=== PATIENT | male | born 1955 | race African-American/Black ===

== ENCOUNTER 2017-05-29 05:10 | Day surgery (SDC) | payer OTHER ==
[2017-05-19 11:53] VITALS: BMI 30.5
[2017-05-29] MEDS ORDERED: HEPARIN NA (PORCINE) 5,000 UNITS/ML 1ML VIAL ONE ×2 (07:30→10:08)
[2017-05-29] MEDS ORDERED: LIDOCAINE HCL 1%, 10 MG/ML (20ML VIAL) ONE (07:31)
[2017-05-29] MEDS ORDERED: MIDAZOLAM HCL 2 MG/2 ML SINGLE DOSE VIAL ONE ×2 (09:41→09:53)
[2017-05-29] MEDS ORDERED: ceFAZolin SODIUM 1 GM VIAL IVPB ONE (09:50)
[2017-05-29] MEDS ORDERED: ceFAZolin SODIUM 1 GM VIAL ONE (09:51)
[2017-05-29] MEDS ORDERED: SODIUM CHLORIDE 0.9% P/F 10 ML VIAL IJ ONE (09:51)
[2017-05-29] MEDS ORDERED: PROPOFOL 20 ML ONE (09:52)
[2017-05-29] MEDS ORDERED: LIDOCAINE HCL 1%, 10 MG/ML (20ML VIAL) NR ONE (09:54)
[2017-05-29] MEDS ORDERED: PROMETHAZINE HCL 25 MG/1 ML VIAL IVPUSH PRN (11:03)
[2017-05-29] MEDS ORDERED: ONDANSETRON 4 MG/2 ML VIAL IVPUSH PRN (11:03)
--- NOTE | 2017-05-29 11:09 | OP ---
Operative Note - Note: Operative Date: 05/29/17 Pre-Operative Diagnosis: RLE claudication Operation: Aortogram, RLE angiogram, SFA, Popliteal artery DCB angioplasty, SFA, Popliteal artery stent placement. Post-Operative Diagnosis: Same as Pre-op Surgeon: Shar Hopkins Anesthesia: Fractional Estimated Blood Loss (mls): 50 Operative Report Dictated: Yes
--- NOTE | 2017-05-29 11:10 | HP ---
Admitting History and Physical - Admission Chief Complaint: RLE claudication - Past Medical History [employer]: Yes: Peripheral Neuropathy (secondary to DM ) Musculoskeletal: Yes: Chronic low back pain, Osteoarthritis Endocrine: Yes: Diabetes Mellitus - Smoking History Smoking history: Current every day smoker Have you smoked in the past 12 months: No Aproximately how many cigarettes per day: 4 - Alcohol/Substance Use Hx Alcohol Use: No Home Medications - Allergies Allergies/Adverse Reactions: Allergies Allergy/AdvReac Type Severity Reaction Status Date / Time No Known Allergies Allergy Verified 05/29/17 08:35 - Home Medications Home Medications: Ambulatory Orders Acetaminophen [Tylenol .Regular Strength -] 325 mg PO Q4H PRN #90 tablet Gabapentin [Neurontin -] 300 mg PO BID #60 capsule 10/28/14 Ramipril [Altace] 5 mg PO DAILY #0 capsule 10/28/14 Sennosides [Senna -] 1 tab PO BID #60 tablet 10/28/14 Tamsulosin HCl [Flomax -] 0.8 mg PO DAILY@0800 #0 cap.er.24h 10/28/14 Insulin (Levemir) [Levemir Flexpen -] 30 units SQ BID 11/23/14 Insulin Sliding Scale [Novolog Flexpen Sliding Scale -] See Protocol SQ BID 09/08 Loperamide 2 mg PO QID PRN 11/23/14 Aspirin [ASA -] 81 mg PO DAILY 05/19/17 Physical Examination Vital Signs: Vital Signs Temperature 98.0 F 05/29/17 08:30 Pulse Rate 90 05/29/17 08:30 Respiratory Rate 18 05/29/17 08:30 Blood Pressure 116/66 05/29/17 08:30 O2 Sat by Pulse Oximetry (%) 96 05/29/17 08:38 Constitutional: Yes: Well Nourished Eyes: Yes: WNL HENT: Yes: WNL Neck: Yes: WNL Cardiovascular: Yes: WNL Respiratory: Yes: WNL Gastrointestinal: Yes: WNL Musculoskeletal: Yes: WNL Extremities: Yes: WNL Edema: No Peripheral Pulses WNL: No Integumentary: Yes: WNL Neurological: Yes: WNL ...Motor Strength: WNL Psychiatric: Yes: WNL Assessment/Plan RLE claudication 1. For angiogram today
[2017-05-29] MEDS ORDERED: LACTATED RINGERS SOLUTION 1,000 ML IV SCH (11:15)
[2017-05-29] MEDS ORDERED: CLOPIDOGREL BISULFATE 75 MG TABLET (FP) PO ONE ×2 (11:23→12:30)
[2017-05-29 12:14] VITALS: TEMP 98
[2017-05-29 13:08] VITALS: BP 135/76; PULSE 78
--- NOTE | 2017-05-29 16:33 | OP ---
DATE OF OPERATION: 05/29/2017 PREOPERATIVE DIAGNOSIS: Right lower extremity claudication. POSTOPERATIVE DIAGNOSIS: Right lower extremity claudication. PROCEDURE: Aortogram, right lower extremity angiogram, superficial femoral artery and popliteal artery drug-coated balloon angioplasty with stent placement. SURGEON: Shar Guidry DO ANESTHESIA: Fractional. BLOOD LOSS: 50 mL INDICATION FOR PROCEDURE: The patient is a 62-year-old male who has right lower extremity claudication. Preoperative ultrasound showed that he has a SFA and popliteal artery occlusion. Patient came into ambulatory surgery after having medical and cardiac clearance. The patient was consented for the procedure, understanding all risks, benefits, and alternatives and was then taken to the operating room. DESCRIPTION OF PROCEDURE: Once in the operating room, was laid on the operating table in supine manner, and the area of the left and right groin were prepped and draped in sterile surgical manner. We then went ahead and injected 10 mL of 1% lidocaine over the left common femoral artery. We then went ahead and took our micropuncture needle and punctured the left common femoral artery. Micropuncture wire was inserted, and a traditional 5-Kinyarwanda sheath was inserted. We then placed a 0.035 floppy guidewire up into the aorta, followed by an Omni Flush catheter. We then shot an aortogram via hand injection, showing that the aorta and the iliac arteries were without any disease. We then placed a 0.035 floppy guidewire up and over to the right common femoral artery. An Omni Flush catheter followed. We then went ahead and shot an angiogram of the right lower extremity via hand injection, which showed that the common femoral artery, the profunda, and the proximal SFA were patent. The distal SFA and the popliteal artery were occluded. The popliteal artery came back in below-knee popliteal artery, then reconstituted, and the patient actually had 2-vessel runoff, PT and DP, into the foot. At this point, we placed a 0.035 stiff guidewire into the SFA, removed our Omni Flush catheter, and placed a 6 x 25 crossover sheath. Next, 5000 units of IV heparin were administered to the patient. We then brought our wire down to the occlusion, and using our Quick-cross catheter, we were able to perform subintimal dissection and get the wire down into the below-knee popliteal artery. Once we got into the below-knee popliteal artery, the wire was then placed into the anterior tibial artery, followed by the Quick-cross catheter. We then shot an angiogram of the right lower extremity, making sure we were in the true lumen, and we were as the anterior tibial artery lit up all the way into the foot. We then went ahead and placed our wire into the anterior tibial artery. We then went ahead and used a 5 x 10 balloon and performed angioplasty of the occluded segment of the SFA and popliteal artery. We then went ahead and used a 6 x 120 drug-coated Lutonix balloon and performed angioplasty of the SFA and popliteal artery, and we kept the balloon up for 2 minutes. We then went ahead and placed a 6 x 8 and a 6 x 100 LifeStent and covered the popliteal artery and the SFA segment that was occluded. We then ballooned that in place using a 5 x 10 balloon. Completion angiogram now showed that the SFA and popliteal artery were patent. There was good brisk flow down the anterior tibial artery which went all the way into the foot. Patient had a palpable DP pulse. At this point, we brought our sheath up and over and StarClose device was successfully deployed in the left common femoral artery. Area was wet and dried, and Dermabond was placed. The patient tolerated the procedure with no complications. Patient transferred to the PACU in stable condition. SHAR GUIDRY DO [id number]
== END 2017-05-29 13:15 | disposition home or self-care (01) ==
LOC: JASU-SURG 05:10
PROC: 047M3D1 Dilation of Right Popliteal Artery with Intraluminal Device, using Drug-Coated Balloon, Percutaneous Approach (ICD-10-PCS; 2017-05-29)
PROC: 047K3D1 Dilation of Right Femoral Artery with Intraluminal Device, using Drug-Coated Balloon, Percutaneous Approach (ICD-10-PCS; principal; 2017-05-29 09:00)
DX: I70.211 Atherosclerosis of native arteries of extremities with intermittent claudication, right leg (principal)
CPT/HCPCS: 37226; C1877; C2623; 76000-TC; 94760; J1644

== ENCOUNTER 2022-04-08 15:36 | Inpatient (IN) | payer OTHER ==
[2022-04-08] MEDS ORDERED: SODIUM CHLORIDE 1,000 ML IV SCH (16:00)
[2022-04-08 16:23] VITALS: BMI 21.7
[2022-04-08 17:05] LABS: BASO % 0.8 % (0-2.0); EOS % 1.8 % (0-4.5); HEMOGLOBIN 11.3 GM/dL (11.7-16.9); LYMPH % 33.6 % (8-40); MCH 31.5 pg (25.7-33.7); MCHC 34.3 g/dl (32.0-35.9); MEAN PLT VOLUME 7.6 fl (7.5-11.1); MONO % 7.6 % (3.8-10.2); NEUT % 56.2 % (42.8-82.8); PLATELET COUNT 213 10^3/uL (134-434); RBC 3.59 M/mm3 (4.00-5.60); RDW 14.1 % (11.9-15.9); WHITE BLOOD COUNT 8.8 K/mm3 (4.0-10.0)
[2022-04-08 17:21] LABS: ACTIVATED PTT 34.3 SECONDS (25.2-36.5); INR 0.97 (0.83-1.09); PROTHROMBIN TIME (PATIENT) 11.1 SEC (9.7-13.0)
[2022-04-08 17:25] LABS: CHLORIDE 110 mmol/L (98-107); SODIUM 142 mmol/L (136-145)
[2022-04-08 17:27] LABS: BLOOD UREA NITROGEN 47.8 mg/dL (7-18); CALCIUM 8.5 mg/dL (8.5-10.1)
[2022-04-08 17:28] LABS: ALBUMIN 3.4 g/dl (3.4-5.0); CO2 26 mmol/L (21-32); GLUCOSE,RANDOM 102 mg/dL (74-106)
[2022-04-08 17:31] LABS: CREATININE 3.7 mg/dL (0.55-1.3); SGOT/AST 9 U/L (15-37); SGPT/ALT 19 U/L (13-61)
[2022-04-08 17:32] LABS: BILIRUBIN,TOTAL 0.3 mg/dL (0.2-1); TOT PROT 6.9 g/dl (6.4-8.2)
[2022-04-08 17:34] LABS: ALK PHOS 52 U/L (45-117)
[2022-04-08 17:40] LABS: ANION GAP 5 MMOL/L (8-16)
[2022-04-08] MEDS ORDERED: CALCIUM GLUCONATE 10% - 1,000 MG/10 ML VIAL IVPUSH ONE (17:41)
[2022-04-08] MEDS ORDERED: INSULIN REGULAR HUMAN 100 UNITS/ML *VIAL IVPUSH ONE (17:41)
[2022-04-08] MEDS ORDERED: SODIUM BICARBONATE 8.4% 50 MEQ/50 ML VIAL IV ONE (17:43)
[2022-04-08] MEDS ORDERED: DEXTROSE 50%-WATER - 25 GM/50 ML VIAL IVPUSH ONE (17:43)
[2022-04-08] MEDS ORDERED: CALCIUM GLUCONATE 10% - 1,000 MG/10 ML VIAL ONE (17:54)
[2022-04-08] MEDS ORDERED: DEXTROSE 50%-WATER 25 GM/50 ML DISP.SYRIN ONE (17:54)
[2022-04-08] MEDS ORDERED: ALBUTEROL SO4 0.083% IH SOL 2.5 MG/3 ML VIAL.NEB. NEB ONE (17:54)
[2022-04-08] MEDS: ALBUTEROL SO4 0.083% IH SOL 2.5 MG/3 ML VIAL.NEB. NEB SCH ×4 (18:00→18:50)
[2022-04-08 18:12] LABS: CHOLESTEROL 140 mg/dL (50-200)
[2022-04-08 18:13] LABS: TRIGLYCERIDES 179 mg/dL (0-150)
[2022-04-08 18:14] LABS: LDL CHOLESTEROL (ONLY SJRH) 88 mg/dL (5-100)
[2022-04-08 18:15] LABS: HDL CHOLESTEROL 34 mg/dL (40-60)
[2022-04-08 18:20] LABS: EPI CELLS 13 /uL (0-25.1); HYALINE CASTS 3 /uL (0-3.1); URINE APPEARANCE CLEAR; URINE BACTERIA 9 /uL (0-1359); URINE BILIRUBIN NEGATIVE (NEGATIVE); URINE COLOR YELLOW; URINE GLUCOSE (UA) NEGATIVE (NEGATIVE); URINE KETONE NEGATIVE (NEGATIVE); URINE LEUK ESTERASE NEGATIVE (NEGATIVE); URINE NITRITE NEGATIVE (NEGATIVE); URINE PROTEIN 3+ (NEGATIVE); URINE RBC 9 /uL (0-23.9); URINE UROBILINOGEN 0.2 mg/dL (0.2-1.0); URINE WBC 9 /uL (0-25.8)
[2022-04-08] MEDS ORDERED: SODIUM ZIRCONIUM CYCLOSILICATE (LOKELMA) 5 GM PACKET PO ONE (20:00)
[2022-04-08] MEDS ORDERED: SODIUM ZIRCONIUM CYCLOSILICATE (LOKELMA) 5 GM PACKET ONE (20:12)
[2022-04-08] MEDS: HEPARIN NA (PORCINE) 5,000 UNITS/ML 1ML VIAL SQ SCH (22:30)
[2022-04-09] MEDS ORDERED: SODIUM CHLORIDE 1,000 ML IV SCH (00:15)
[2022-04-09] MEDS ORDERED: CALCIUM GLUCONATE 10% - 1,000 MG/10 ML VIAL IVPUSH ONE (06:02)
[2022-04-09 06:17] LABS: EPI CELLS 8 /uL (0-25.1); HYALINE CASTS 2 /uL (0-3.1); URINE APPEARANCE CLEAR; URINE BACTERIA 2 /uL (0-1359); URINE BILIRUBIN NEGATIVE (NEGATIVE); URINE COLOR YELLOW; URINE GLUCOSE (UA) NEGATIVE (NEGATIVE); URINE KETONE NEGATIVE (NEGATIVE); URINE LEUK ESTERASE NEGATIVE (NEGATIVE); URINE NITRITE NEGATIVE (NEGATIVE); URINE PROTEIN 3+ (NEGATIVE); URINE RBC 12 /uL (0-23.9); URINE UROBILINOGEN 0.2 mg/dL (0.2-1.0); URINE WBC 6 /uL (0-25.8)
[2022-04-09 06:20] LABS: URINE BARBITURATES NEGATIVE (NEGATIVE)
[2022-04-09 06:21] LABS: COCAINE, UR NEGATIVE (NEGATIVE); METHADONE, UR NEGATIVE (NEGATIVE); PHENCYCLIDINE,URINE NEGATIVE (NEGATIVE); URINE AMPHETAMINES NEGATIVE (NEGATIVE); URINE BENZODIAZEPINES NEGATIVE (NEGATIVE)
[2022-04-09 06:22] LABS: OPIATES, URI NEGATIVE (NEGATIVE)
[2022-04-09] MEDS ORDERED: CALCIUM GLUC IN NACL, ISO-OSM 1 GM/50 ML BAG IVPB ONE (06:23)
[2022-04-09 06:47] LABS: HEMATOCRIT 31.6 % (35.4-49); HEMOGLOBIN 10.9 GM/dL (11.7-16.9); MCH 31.7 pg (25.7-33.7); MCHC 34.6 g/dl (32.0-35.9); MEAN CELL VOLUME 91.7 fl (80-96); MEAN PLT VOLUME 8.2 fl (7.5-11.1); PLATELET COUNT 206 10^3/uL (134-434); RBC 3.44 M/mm3 (4.00-5.60); WHITE BLOOD COUNT 7.5 K/mm3 (4.0-10.0)
[2022-04-09] MEDS ORDERED: INSULIN SLIDING SCALE (NOVOLOG) 1 VIAL SQ SCH (07:00)
[2022-04-09] MEDS: INSULIN SLIDING SCALE (NOVOLOG) 1 VIAL SQ SCH ×5 (07:07→22:11)
[2022-04-09 07:08] LABS: CALCIUM 7.9 mg/dL (8.5-10.1)
[2022-04-09 07:09] LABS: ALBUMIN 3.1 g/dl (3.4-5.0); BLOOD UREA NITROGEN 48.7 mg/dL (7-18); MAGNESIUM 1.5 mg/dL (1.8-2.4)
[2022-04-09 07:12] LABS: CREATININE 3.8 mg/dL (0.55-1.3); PHOSPHOROUS 5.5 mg/dL (2.5-4.9)
[2022-04-09 07:13] LABS: TOT PROT 6.3 g/dl (6.4-8.2)
[2022-04-09 07:14] LABS: BILIRUBIN,TOTAL 0.3 mg/dL (0.2-1)
[2022-04-09] MEDS ORDERED: HEPARIN NA (PORCINE) 5,000 UNITS/ML 1ML VIAL ONE ×2 (07:18→15:21)
[2022-04-09] MEDS: HEPARIN NA (PORCINE) 5,000 UNITS/ML 1ML VIAL SQ SCH ×3 (07:24→22:03)
[2022-04-09] MEDS ORDERED: TAMSULOSIN HCL 0.4 MG CAP ONE (07:47)
[2022-04-09] MEDS: TAMSULOSIN HCL 0.4 MG CAP PO SCH (08:10)
[2022-04-09] MEDS ORDERED: amLODIPine BESYLATE 10 MG TABLET (FP) ONE (08:52)
[2022-04-09] MEDS ORDERED: CLOPIDOGREL BISULFATE 75 MG TABLET (FP) ONE (08:53)
[2022-04-09] MEDS: CLOPIDOGREL BISULFATE 75 MG TABLET (FP) PO SCH (10:11)
[2022-04-09] MEDS: amLODIPine BESYLATE 10 MG TABLET (FP) PO SCH (10:11)
[2022-04-09] MEDS: KETOCONAZOLE 2% CREAM - 60GM TUBE TP SCH (10:11)
[2022-04-09] MEDS ORDERED: MAGNESIUM 2GM/50ML STERILE WATER IVPB IVPB ONE (16:46)
[2022-04-09] MEDS ORDERED: MAGNESIUM OXIDE 400 MG TABLET (FP) PO ONE (18:08)
[2022-04-09] MEDS: ATORVASTATIN CA 10 MG TABLET (FP) PO SCH (22:04)
[2022-04-10] MEDS: HEPARIN NA (PORCINE) 5,000 UNITS/ML 1ML VIAL SQ SCH ×3 (06:21→21:57)
[2022-04-10] MEDS: INSULIN SLIDING SCALE (NOVOLOG) 1 VIAL SQ SCH ×4 (06:21→22:09)
[2022-04-10] MEDS: SODIUM CHLORIDE 0.45% 1,000 ML IV SCH ×2 (06:21→19:52)
[2022-04-10 08:28] LABS: BASO % 0.6 % (0-2.0); HEMATOCRIT 29.7 % (35.4-49); HEMOGLOBIN 10.1 GM/dL (11.7-16.9); LYMPH % 37.9 % (8-40); MCH 31.3 pg (25.7-33.7); MCHC 34.2 g/dl (32.0-35.9); MEAN CELL VOLUME 91.6 fl (80-96); MEAN PLT VOLUME 8.4 fl (7.5-11.1); MONO % 7.8 % (3.8-10.2); NEUT % 51.7 % (42.8-82.8); PLATELET COUNT 198 10^3/uL (134-434); RBC 3.24 M/mm3 (4.00-5.60); WHITE BLOOD COUNT 7.4 K/mm3 (4.0-10.0)
[2022-04-10 08:49] LABS: CALCIUM 7.7 mg/dL (8.5-10.1)
[2022-04-10 08:50] LABS: BLOOD UREA NITROGEN 46.8 mg/dL (7-18); MAGNESIUM 1.7 mg/dL (1.8-2.4)
[2022-04-10 08:53] LABS: CREATININE 3.6 mg/dL (0.55-1.3)
[2022-04-10 08:54] LABS: BILIRUBIN,TOTAL 0.6 mg/dL (0.2-1)
[2022-04-10] MEDS: TAMSULOSIN HCL 0.4 MG CAP PO SCH (09:00)
[2022-04-10] MEDS: CLOPIDOGREL BISULFATE 75 MG TABLET (FP) PO SCH (10:28)
[2022-04-10] MEDS: amLODIPine BESYLATE 10 MG TABLET (FP) PO SCH (10:28)
[2022-04-10] MEDS: KETOCONAZOLE 2% CREAM - 60GM TUBE TP SCH (10:32)
[2022-04-10] MEDS ORDERED: SODIUM ZIRCONIUM CYCLOSILICATE (LOKELMA) 5 GM PACKET PO SCH (11:45)
[2022-04-10 18:29] LABS: EPI CELLS 20 /uL (0-25.1); HYALINE CASTS 2 /uL (0-3.1); PH,URINE 5.5 (5.0-8.0); URINE APPEARANCE CLEAR; URINE BACTERIA 7 /uL (0-1359); URINE BILIRUBIN NEGATIVE (NEGATIVE); URINE COLOR YELLOW; URINE GLUCOSE (UA) NEGATIVE (NEGATIVE); URINE KETONE NEGATIVE (NEGATIVE); URINE LEUK ESTERASE NEGATIVE (NEGATIVE); URINE NITRITE NEGATIVE (NEGATIVE); URINE PROTEIN 4+ (NEGATIVE); URINE RBC 10 /uL (0-23.9); URINE UROBILINOGEN 0.2 mg/dL (0.2-1.0); URINE WBC 10 /uL (0-25.8)
[2022-04-10] MEDS: ATORVASTATIN CA 10 MG TABLET (FP) PO SCH (21:57)
[2022-04-11] MEDS: INSULIN SLIDING SCALE (NOVOLOG) 1 VIAL SQ SCH ×4 (06:47→21:41)
[2022-04-11] MEDS: HEPARIN NA (PORCINE) 5,000 UNITS/ML 1ML VIAL SQ SCH ×3 (06:47→21:41)
[2022-04-11] MEDS: TAMSULOSIN HCL 0.4 MG CAP PO SCH (11:22)
[2022-04-11] MEDS: amLODIPine BESYLATE 10 MG TABLET (FP) PO SCH (11:22)
[2022-04-11] MEDS: KETOCONAZOLE 2% CREAM - 60GM TUBE TP SCH (11:22)
[2022-04-11] MEDS: CLOPIDOGREL BISULFATE 75 MG TABLET (FP) PO SCH (11:22)
[2022-04-11 14:34] LABS: CALCIUM 7.9 mg/dL (8.5-10.1)
[2022-04-11 14:35] LABS: ALBUMIN 3.2 g/dl (3.4-5.0); BLOOD UREA NITROGEN 53.5 mg/dL (7-18)
[2022-04-11 14:38] LABS: CREATININE 3.4 mg/dL (0.55-1.3); PHOSPHOROUS 4.5 mg/dL (2.5-4.9)
[2022-04-11 14:39] LABS: BILIRUBIN,TOTAL 0.2 mg/dL (0.2-1); TOT PROT 6.7 g/dl (6.4-8.2)
[2022-04-11] MEDS: SODIUM CHLORIDE 0.45% 1,000 ML IV SCH (17:29)
[2022-04-11] MEDS: ATORVASTATIN CA 10 MG TABLET (FP) PO SCH (21:41)
[2022-04-12] MEDS: HEPARIN NA (PORCINE) 5,000 UNITS/ML 1ML VIAL SQ SCH ×3 (06:28→21:22)
[2022-04-12] MEDS: INSULIN SLIDING SCALE (NOVOLOG) 1 VIAL SQ SCH ×4 (06:29→21:22)
[2022-04-12] MEDS: amLODIPine BESYLATE 10 MG TABLET (FP) PO SCH (10:36)
[2022-04-12] MEDS: CLOPIDOGREL BISULFATE 75 MG TABLET (FP) PO SCH (10:36)
[2022-04-12] MEDS: TAMSULOSIN HCL 0.4 MG CAP PO SCH (10:36)
[2022-04-12] MEDS: KETOCONAZOLE 2% CREAM - 60GM TUBE TP SCH (10:37)
[2022-04-12 21:03] LABS: BASO % 0.5 % (0-2.0); EOS % 1.9 % (0-4.5); HEMOGLOBIN 10.7 GM/dL (11.7-16.9); LYMPH % 35.2 % (8-40); MCH 31.4 pg (25.7-33.7); MCHC 33.5 g/dl (32.0-35.9); MEAN CELL VOLUME 93.6 fl (80-96); MEAN PLT VOLUME 8.6 fl (7.5-11.1); MONO % 8.5 % (3.8-10.2); NEUT % 53.9 % (42.8-82.8); PLATELET COUNT 232 10^3/uL (134-434); RBC 3.42 M/mm3 (4.00-5.60); RDW 14.1 % (11.9-15.9); WHITE BLOOD COUNT 8.6 K/mm3 (4.0-10.0)
[2022-04-12] MEDS: SODIUM CHLORIDE 0.45% 1,000 ML IV SCH (21:14)
[2022-04-12] MEDS: ATORVASTATIN CA 10 MG TABLET (FP) PO SCH (21:22)
[2022-04-12 21:23] LABS: ALBUMIN 3.2 g/dl (3.4-5.0); BLOOD UREA NITROGEN 62.1 mg/dL (7-18)
[2022-04-12 21:26] LABS: CREATININE 3.5 mg/dL (0.55-1.3)
[2022-04-12 21:28] LABS: BILIRUBIN,TOTAL 0.2 mg/dL (0.2-1); TOT PROT 6.5 g/dl (6.4-8.2)
[2022-04-12 21:57] LABS: CALCIUM 7.7 mg/dL (8.5-10.1)
[2022-04-13] MEDS: INSULIN SLIDING SCALE (NOVOLOG) 1 VIAL SQ SCH ×4 (06:42→22:36)
[2022-04-13] MEDS: HEPARIN NA (PORCINE) 5,000 UNITS/ML 1ML VIAL SQ SCH ×3 (06:43→21:09)
[2022-04-13] MEDS: TAMSULOSIN HCL 0.4 MG CAP PO SCH (08:10)
[2022-04-13] MEDS: KETOCONAZOLE 2% CREAM - 60GM TUBE TP SCH (09:43)
[2022-04-13] MEDS: amLODIPine BESYLATE 10 MG TABLET (FP) PO SCH (09:44)
[2022-04-13] MEDS: CLOPIDOGREL BISULFATE 75 MG TABLET (FP) PO SCH (09:44)
[2022-04-13] MEDS: SODIUM ZIRCONIUM CYCLOSILICATE (LOKELMA) 5 GM PACKET PO SCH (11:13)
[2022-04-13] MEDS ORDERED: DOCUSATE SODIUM 100 MG CAPSULE (FP) PO ONE (20:18)
[2022-04-13] MEDS: SODIUM CHLORIDE 0.45% 1,000 ML IV SCH (21:05)
[2022-04-13] MEDS: ATORVASTATIN CA 10 MG TABLET (FP) PO SCH (21:06)
[2022-04-14] MEDS: HEPARIN NA (PORCINE) 5,000 UNITS/ML 1ML VIAL SQ SCH ×3 (06:31→21:29)
[2022-04-14] MEDS: INSULIN SLIDING SCALE (NOVOLOG) 1 VIAL SQ SCH ×4 (06:31→21:30)
[2022-04-14] MEDS: CLOPIDOGREL BISULFATE 75 MG TABLET (FP) PO SCH (10:16)
[2022-04-14] MEDS: SODIUM ZIRCONIUM CYCLOSILICATE (LOKELMA) 5 GM PACKET PO SCH (10:16)
[2022-04-14] MEDS: amLODIPine BESYLATE 10 MG TABLET (FP) PO SCH (10:16)
[2022-04-14] MEDS: KETOCONAZOLE 2% CREAM - 60GM TUBE TP SCH (10:16)
[2022-04-14] MEDS: TAMSULOSIN HCL 0.4 MG CAP PO SCH (10:16)
[2022-04-14 15:40] LABS: BLOOD UREA NITROGEN 69.6 mg/dL (7-18); CALCIUM 8.1 mg/dL (8.5-10.1)
[2022-04-14 15:44] LABS: CREATININE 3.8 mg/dL (0.55-1.3)
[2022-04-14] MEDS: SODIUM CHLORIDE 0.45% 1,000 ML IV SCH (20:55)
[2022-04-14] MEDS: ATORVASTATIN CA 10 MG TABLET (FP) PO SCH (21:29)
[2022-04-15] MEDS: HEPARIN NA (PORCINE) 5,000 UNITS/ML 1ML VIAL SQ SCH ×2 (06:15→12:59)
[2022-04-15] MEDS: INSULIN SLIDING SCALE (NOVOLOG) 1 VIAL SQ SCH ×4 (06:16→22:20)
[2022-04-15] MEDS: CLOPIDOGREL BISULFATE 75 MG TABLET (FP) PO SCH (09:06)
[2022-04-15] MEDS: TAMSULOSIN HCL 0.4 MG CAP PO SCH (09:06)
[2022-04-15] MEDS: amLODIPine BESYLATE 10 MG TABLET (FP) PO SCH (09:07)
[2022-04-15] MEDS: SODIUM ZIRCONIUM CYCLOSILICATE (LOKELMA) 5 GM PACKET PO SCH (09:07)
[2022-04-15 10:35] LABS: EOS % 1.7 % (0-4.5); HEMATOCRIT 32.1 % (35.4-49); HEMOGLOBIN 10.6 GM/dL (11.7-16.9); LYMPH % 32.3 % (8-40); MCH 31.1 pg (25.7-33.7); MEAN CELL VOLUME 94.2 fl (80-96); MEAN PLT VOLUME 8.2 fl (7.5-11.1); MONO % 8.5 % (3.8-10.2); NEUT % 56.5 % (42.8-82.8); PLATELET COUNT 216 10^3/uL (134-434); RDW 14.4 % (11.9-15.9); WHITE BLOOD COUNT 8.2 K/mm3 (4.0-10.0)
[2022-04-15 10:54] LABS: ALBUMIN 3.1 g/dl (3.4-5.0); BLOOD UREA NITROGEN 72.6 mg/dL (7-18); CALCIUM 8.1 mg/dL (8.5-10.1)
[2022-04-15 10:57] LABS: CREATININE 3.7 mg/dL (0.55-1.3)
[2022-04-15 10:59] LABS: BILIRUBIN,TOTAL 0.3 mg/dL (0.2-1); TOT PROT 6.2 g/dl (6.4-8.2)
[2022-04-15] MEDS: KETOCONAZOLE 2% TOPICAL CREAM 15 GM TUBE TP SCH (13:07)
[2022-04-15] MEDS: KETOCONAZOLE 2% CREAM - 60GM TUBE TP SCH (13:19)
[2022-04-15 16:07] LABS: ATYPICAL pANCA <1:20 titer (Neg:<1:20); C-ANCA <1:20 titer (Neg:<1:20)
[2022-04-15] MEDS: SODIUM CHLORIDE 0.45% 1,000 ML IV SCH (21:56)
[2022-04-15] MEDS: ATORVASTATIN CA 10 MG TABLET (FP) PO SCH (22:20)
[2022-04-16] MEDS: INSULIN SLIDING SCALE (NOVOLOG) 1 VIAL SQ SCH ×4 (06:21→21:53)
[2022-04-16] MEDS: amLODIPine BESYLATE 10 MG TABLET (FP) PO SCH (10:29)
[2022-04-16] MEDS: CLOPIDOGREL BISULFATE 75 MG TABLET (FP) PO SCH (10:29)
[2022-04-16] MEDS: SODIUM ZIRCONIUM CYCLOSILICATE (LOKELMA) 5 GM PACKET PO SCH (10:29)
[2022-04-16] MEDS: TAMSULOSIN HCL 0.4 MG CAP PO SCH (10:29)
[2022-04-16] MEDS: KETOCONAZOLE 2% TOPICAL CREAM 15 GM TUBE TP SCH (11:39)
[2022-04-16] MEDS: ATORVASTATIN CA 10 MG TABLET (FP) PO SCH (21:53)
[2022-04-16] MEDS: SODIUM CHLORIDE 0.45% 1,000 ML IV SCH (21:53)
[2022-04-17] MEDS: INSULIN SLIDING SCALE (NOVOLOG) 1 VIAL SQ SCH ×2 (06:05→12:21)
[2022-04-17 06:13] VITALS: PULSE 94; RESP 18
[2022-04-17] MEDS: amLODIPine BESYLATE 10 MG TABLET (FP) PO SCH (09:59)
[2022-04-17] MEDS: CLOPIDOGREL BISULFATE 75 MG TABLET (FP) PO SCH (09:59)
[2022-04-17] MEDS: TAMSULOSIN HCL 0.4 MG CAP PO SCH (09:59)
[2022-04-17] MEDS: SODIUM ZIRCONIUM CYCLOSILICATE (LOKELMA) 5 GM PACKET PO SCH (10:00)
[2022-04-17] MEDS: KETOCONAZOLE 2% TOPICAL CREAM 15 GM TUBE TP SCH (10:01)
[2022-04-17 11:27] VITALS: BP 138/80; TEMP 98.7
== END 2022-04-17 15:09 | disposition home or self-care (01) | DRG 640 ==
LOC: JER 15:36 → JERBED 18:23 → J4S 04-09 17:47
PROVIDERS: ADMIT Internal Medicine; ATTEND Internal Medicine
DX: E86.0 Dehydration (principal); G93.41 Metabolic encephalopathy; N17.9 Acute kidney failure, unspecified; E87.5 Hyperkalemia; E11.42 Type 2 diabetes mellitus with diabetic polyneuropathy; M54.50 Low back pain, unspecified; F32.A Depression, unspecified; R19.7 Diarrhea, unspecified; I12.9 Hypertensive chronic kidney disease with stage 1 through stage 4 chronic kidney disease, or unspecified chronic kidney disease; E11.22 Type 2 diabetes mellitus with diabetic chronic kidney disease; N18.9 Chronic kidney disease, unspecified; Z87.820 Personal history of traumatic brain injury
CPT/HCPCS: 36415; 70450-TC; 71045-TC-FY; 76775-TC; 80048; 80053; 80061; 80307; 81003; 82436; 82570; 82962; 83036; 83520; 83605; 83735; 84100; 84156; 84300; 84484; 85025; 85027; 85610; 85730; 86256; 86850; 86900; 86901; 93005; 93010; 97116-GP; 97161-GP; 99285-25; C9803-CS; J1644; U0003; U0005

== ENCOUNTER 2022-09-17 14:39 | Inpatient (IN) | payer OTHER ==
[2022-09-17 17:28] LABS: BASO % 0.5 % (0-2.0); EOS % 1.6 % (0-4.5); HEMATOCRIT 22.3 % (35.4-49); HEMOGLOBIN 7.4 GM/dL (11.7-16.9); LYMPH % 24.6 % (8-40); MCH 30.6 pg (25.7-33.7); MCHC 33.1 g/dl (32.0-35.9); MEAN CELL VOLUME 92.5 fl (80-96); MEAN PLT VOLUME 7.1 fl (7.5-11.1); MONO % 9.5 % (3.8-10.2); NEUT % 63.8 % (42.8-82.8); PLATELET COUNT 257 10^3/uL (134-434); RBC 2.41 M/mm3 (4.00-5.60); RDW 15.2 % (11.9-15.9); WHITE BLOOD COUNT 7.5 K/mm3 (4.0-10.0)
[2022-09-17 17:47] LABS: CHLORIDE 112 mmol/L (98-107); SODIUM 145 mmol/L (136-145)
[2022-09-17 17:50] LABS: ALBUMIN 2.2 g/dl (3.4-5.0); ANION GAP 7 MMOL/L (8-16); BLOOD UREA NITROGEN 40.1 mg/dL (7-18); CO2 27 mmol/L (21-32); GLUCOSE,RANDOM 109 mg/dL (74-106)
[2022-09-17 17:53] LABS: CREATININE 5.1 mg/dL (0.55-1.3); SGOT/AST 23 U/L (15-37); SGPT/ALT 16 U/L (13-61)
[2022-09-17 17:54] LABS: BILIRUBIN,TOTAL 0.2 mg/dL (0.2-1); TOT PROT 5.5 g/dl (6.4-8.2)
[2022-09-17 17:56] LABS: ALK PHOS 48 U/L (45-117)
[2022-09-17 18:01] LABS: CALCIUM 5.8 mg/dL (8.5-10.1)
[2022-09-17] MEDS ORDERED: CALCIUM GLUCONATE 10% - 1,000 MG/10 ML VIAL IVPB ONE (18:31)
[2022-09-17] MEDS ORDERED: LACTATED RINGERS SOLUTION 1000 ML INFUS.BAG IV ONE (18:45)
[2022-09-17] MEDS ORDERED: CALCIUM GLUCONATE 10% - 1,000 MG/10 ML VIAL ONE (18:55)
[2022-09-17] MEDS ORDERED: DOCUSATE SODIUM 100 MG CAPSULE (FP) PO PRN (20:07)
[2022-09-17] MEDS ORDERED: ACETAMINOPHEN 325 MG TABLET (FP) PO PRN (20:07)
[2022-09-17] MEDS ORDERED: SODIUM CHLORIDE 1,000 ML IV SCH (20:15)
[2022-09-18] MEDS: INSULIN SLIDING SCALE (NOVOLOG) 1 VIAL SQ SCH ×5 (00:41→21:59)
[2022-09-18 02:39] VITALS: BMI 30.2
[2022-09-18 10:14] LABS: INR 1.03 (0.83-1.09); PROTHROMBIN TIME (PATIENT) 11.9 SEC (9.7-13.0)
[2022-09-18 10:17] LABS: ACTIVATED PTT 24.4 SECONDS (25.2-36.5)
[2022-09-18 10:23] LABS: CHLORIDE 113 mmol/L (98-107); SODIUM 146 mmol/L (136-145)
[2022-09-18 10:33] LABS: BLOOD UREA NITROGEN 39.1 mg/dL (7-18)
[2022-09-18 10:36] LABS: GLUCOSE,RANDOM 104 mg/dL (74-106); MAGNESIUM 1.7 mg/dL (1.8-2.4)
[2022-09-18 10:40] LABS: ANION GAP 10 MMOL/L (8-16); CO2 23 mmol/L (21-32)
[2022-09-18 10:43] LABS: PHOSPHOROUS 4.7 mg/dL (2.5-4.9)
[2022-09-18 10:58] LABS: CALCIUM 6.4 mg/dL (8.5-10.1)
[2022-09-18] MEDS ORDERED: CALCIUM GLUCONATE 10% - 1,000 MG/10 ML VIAL IVPB ONE (12:43)
[2022-09-18] MEDS ORDERED: MAGNESIUM OXIDE 400 MG TABLET (FP) PO ONE (13:30)
[2022-09-18] MEDS: SODIUM CHLORIDE 0.45% 1,000 ML IV SCH (13:56)
[2022-09-18] MEDS ORDERED: CALCIUM GLUC IN NACL, ISO-OSM 1 GM/50 ML BAG IVPB ONE (14:00)
[2022-09-18] MEDS: CALCIUM 500MG/VIT-D 200 UNITS COMBO TABLET (FP) PO SCH (17:34)
[2022-09-19] MEDS: INSULIN SLIDING SCALE (NOVOLOG) 1 VIAL SQ SCH ×4 (06:36→22:20)
[2022-09-19] MEDS: CALCIUM 500MG/VIT-D 200 UNITS COMBO TABLET (FP) PO SCH (10:07)
[2022-09-19] MEDS: SODIUM CHLORIDE 0.45% 1,000 ML IV SCH (12:45)
[2022-09-20] MEDS: INSULIN SLIDING SCALE (NOVOLOG) 1 VIAL SQ SCH ×4 (06:37→21:45)
[2022-09-20] MEDS: CALCIUM 500MG/VIT-D 200 UNITS COMBO TABLET (FP) PO SCH (09:42)
[2022-09-20] MEDS: SODIUM CHLORIDE 0.45% 1,000 ML IV SCH (16:50)
[2022-09-20] MEDS: OLANZapine 5 MG TABLET PO SCH ×2 (21:45→21:57)
[2022-09-21] MEDS: INSULIN SLIDING SCALE (NOVOLOG) 1 VIAL SQ SCH ×4 (06:10→21:52)
[2022-09-21] MEDS: CALCIUM 500MG/VIT-D 200 UNITS COMBO TABLET (FP) PO SCH ×2 (10:08→10:10)
[2022-09-21] MEDS: SODIUM CHLORIDE 0.45% 1,000 ML IV SCH (13:01)
[2022-09-21] MEDS: CALCITRIOL 0.25 MCG CAPSULE (FP) PO SCH (13:01)
[2022-09-21] MEDS: OLANZapine 5 MG TABLET PO SCH (21:52)
[2022-09-22] MEDS ORDERED: ALBUTEROL SO4 2.5/IPRATROPIUM 0.5 INH SOL 3 ML VIAL.NEB. NEB ONE (03:26)
[2022-09-22] MEDS: INSULIN SLIDING SCALE (NOVOLOG) 1 VIAL SQ SCH ×4 (06:22→22:37)
[2022-09-22 10:11] LABS: BASO % 1.2 % (0-2.0); HEMATOCRIT 21.5 % (35.4-49); HEMOGLOBIN 7.1 GM/dL (11.7-16.9); MCH 30.7 pg (25.7-33.7); MONO % 9.8 % (3.8-10.2); PLATELET COUNT 214 10^3/uL (134-434); RBC 2.31 M/mm3 (4.00-5.60); WHITE BLOOD COUNT 8.7 K/mm3 (4.0-10.0)
[2022-09-22 10:35] LABS: CHLORIDE 111 mmol/L (98-107); SODIUM 140 mmol/L (136-145)
[2022-09-22 10:50] LABS: ALBUMIN 2.2 g/dl (3.4-5.0); ANION GAP 8 MMOL/L (8-16); CO2 21 mmol/L (21-32); GLUCOSE,RANDOM 97 mg/dL (74-106); MAGNESIUM 1.8 mg/dL (1.8-2.4)
[2022-09-22 10:52] LABS: SGOT/AST 16 U/L (15-37); SGPT/ALT 14 U/L (13-61)
[2022-09-22 10:54] LABS: BILIRUBIN,TOTAL 0.3 mg/dL (0.2-1); TOT PROT 5.3 g/dl (6.4-8.2)
[2022-09-22 10:55] LABS: ALK PHOS 42 U/L (45-117)
[2022-09-22 10:56] LABS: CALCIUM 6.7 mg/dL (8.5-10.1)
[2022-09-22] MEDS: CALCIUM 500MG/VIT-D 200 UNITS COMBO TABLET (FP) PO SCH (10:59)
[2022-09-22] MEDS: CALCITRIOL 0.25 MCG CAPSULE (FP) PO SCH (11:00)
[2022-09-22] MEDS ORDERED: FUROSEMIDE 100 MG/10 ML INJECTABLE VIAL IVPB SCH (12:00)
[2022-09-22] MEDS: SODIUM CHLORIDE 0.45% 1,000 ML IV SCH ×2 (13:21→15:29)
[2022-09-22] MEDS: FUROSEMIDE 40 MG/4 ML INJECTABLE VIAL IVPB SCH ×3 (13:21→15:27)
[2022-09-22 14:34] LABS: IRON SERUM 30 ug/dL (50-175); TOTAL IRON BINDING CAPACITY 142 ug/dL (250-450)
[2022-09-22] MEDS: TORSEMIDE 100 MG TABLET PO SCH (17:56)
[2022-09-22] MEDS: OLANZapine 5 MG TABLET PO SCH (22:36)
[2022-09-23] MEDS: INSULIN SLIDING SCALE (NOVOLOG) 1 VIAL SQ SCH ×4 (06:10→22:49)
[2022-09-23] MEDS: CALCITRIOL 0.25 MCG CAPSULE (FP) PO SCH (10:18)
[2022-09-23] MEDS: CALCIUM 500MG/VIT-D 200 UNITS COMBO TABLET (FP) PO SCH (10:18)
[2022-09-23] MEDS: TORSEMIDE 100 MG TABLET PO SCH (10:19)
[2022-09-23] MEDS: SODIUM CHLORIDE 0.45% 1,000 ML IV SCH (13:07)
[2022-09-23] MEDS: OLANZapine 5 MG TABLET PO SCH (22:47)
[2022-09-24] MEDS: INSULIN SLIDING SCALE (NOVOLOG) 1 VIAL SQ SCH ×4 (06:38→16:04)
[2022-09-24] MEDS: CALCIUM 500MG/VIT-D 200 UNITS COMBO TABLET (FP) PO SCH (10:20)
[2022-09-24] MEDS: TORSEMIDE 100 MG TABLET PO SCH (10:20)
[2022-09-24] MEDS: CALCITRIOL 0.25 MCG CAPSULE (FP) PO SCH (10:21)
[2022-09-24 12:15] LABS: HEMATOCRIT 22.5 % (35.4-49); HEMOGLOBIN 7.5 GM/dL (11.7-16.9); MCH 30.6 pg (25.7-33.7); MCHC 33.2 g/dl (32.0-35.9); MEAN CELL VOLUME 92.1 fl (80-96); MEAN PLT VOLUME 6.9 fl (7.5-11.1); PLATELET COUNT 244 10^3/uL (134-434); RBC 2.44 M/mm3 (4.00-5.60); RDW 15.1 % (11.9-15.9); WHITE BLOOD COUNT 8.1 K/mm3 (4.0-10.0)
[2022-09-24] MEDS: SODIUM CHLORIDE 0.45% 1,000 ML IV SCH (12:45)
[2022-09-24 12:49] LABS: CALCIUM 7.4 mg/dL (8.5-10.1)
[2022-09-24 12:50] LABS: BLOOD UREA NITROGEN 59.2 mg/dL (7-18)
[2022-09-24 12:53] LABS: CREATININE 5.2 mg/dL (0.55-1.3)
[2022-09-24 15:10] VITALS: RESP 18
[2022-09-24] MEDS: SODIUM ZIRCONIUM CYCLOSILICATE (LOKELMA) 5 GM PACKET PO SCH (16:21)
[2022-09-24] MEDS: OLANZapine 5 MG TABLET PO SCH (21:58)
[2022-09-25] MEDS: INSULIN SLIDING SCALE (NOVOLOG) 1 VIAL SQ SCH ×3 (06:46→17:57)
[2022-09-25] MEDS: CALCIUM 500MG/VIT-D 200 UNITS COMBO TABLET (FP) PO SCH (10:47)
[2022-09-25] MEDS: SODIUM ZIRCONIUM CYCLOSILICATE (LOKELMA) 5 GM PACKET PO SCH (10:47)
[2022-09-25] MEDS: CALCITRIOL 0.25 MCG CAPSULE (FP) PO SCH (10:47)
[2022-09-25] MEDS: TORSEMIDE 100 MG TABLET PO SCH (10:47)
[2022-09-25 19:45] VITALS: BP 160/93; PULSE 94; TEMP 98.1
[2022-09-25] MEDS: OLANZapine 5 MG TABLET PO SCH (21:30)
[2022-09-26] MEDS: INSULIN SLIDING SCALE (NOVOLOG) 1 VIAL SQ SCH ×2 (06:15→06:31)
[2022-09-26] MEDS: CALCITRIOL 0.25 MCG CAPSULE (FP) PO SCH (10:00)
[2022-09-26] MEDS: SODIUM ZIRCONIUM CYCLOSILICATE (LOKELMA) 5 GM PACKET PO SCH (10:00)
[2022-09-26] MEDS: CALCIUM 500MG/VIT-D 200 UNITS COMBO TABLET (FP) PO SCH (10:00)
[2022-09-26] MEDS: TORSEMIDE 100 MG TABLET PO SCH (10:01)
== END 2022-09-26 11:17 | disposition home or self-care (01) | DRG 683 ==
LOC: JER 14:39 → JERBED 18:33 → J5S 09-18 01:09
PROVIDERS: ADMIT Internal Medicine; ATTEND Internal Medicine
DX: N17.9 Acute kidney failure, unspecified (principal); E87.0 Hyperosmolality and hypernatremia; I69.354 Hemiplegia and hemiparesis following cerebral infarction affecting left non-dominant side; E11.40 Type 2 diabetes mellitus with diabetic neuropathy, unspecified; I10 Essential (primary) hypertension; E78.5 Hyperlipidemia, unspecified; J45.909 Unspecified asthma, uncomplicated; R46.89 Other symptoms and signs involving appearance and behavior; R45.87 Impulsiveness; R45.5 Hostility; E83.51 Hypocalcemia; E77.8 Other disorders of glycoprotein metabolism; E88.09 Other disorders of plasma-protein metabolism, not elsewhere classified; N18.9 Chronic kidney disease, unspecified; E87.70 Fluid overload, unspecified
CPT/HCPCS: 0241U-QW; 36415; 71045-TC-FY; 80048; 80053; 82728; 82962; 83540; 83550; 83735; 84100; 84439; 84443; 84479; 85025; 85027; 85610; 85730; 93005; 93010; 94640; 94761; 97116-GP; 97161-GP; 99285-25

== ENCOUNTER 2022-10-17 17:02 | Inpatient (IN) | payer OTHER ==
[2022-10-17 17:21] VITALS: BMI 28.7
[2022-10-17 18:53] LABS: BASO % 0.3 % (0-2.0); EOS % 0.6 % (0-4.5); HEMATOCRIT 21.1 % (35.4-49); HEMOGLOBIN 7.1 GM/dL (11.7-16.9); LYMPH % 11.7 % (8-40); MCH 30.7 pg (25.7-33.7); MCHC 33.6 g/dl (32.0-35.9); MEAN CELL VOLUME 91.4 fl (80-96); MEAN PLT VOLUME 6.9 fl (7.5-11.1); MONO % 8.4 % (3.8-10.2); PLATELET COUNT 274 10^3/uL (134-434); RBC 2.31 M/mm3 (4.00-5.60); RDW 15.1 % (11.9-15.9); WHITE BLOOD COUNT 14.5 K/mm3 (4.0-10.0)
[2022-10-17 19:01] LABS: INR 1.34 (0.83-1.09); PROTHROMBIN TIME (PATIENT) 15.5 SEC (9.7-13.0)
[2022-10-17 19:04] LABS: ACTIVATED PTT 32.9 SECONDS (25.2-36.5)
[2022-10-17 19:18] LABS: CHLORIDE 114 mmol/L (98-107); SODIUM 139 mmol/L (136-145)
[2022-10-17 19:21] LABS: ALBUMIN 2.3 g/dl (3.4-5.0); ANION GAP 4 MMOL/L (8-16); BLOOD UREA NITROGEN 45.2 mg/dL (7-18); CO2 21 mmol/L (21-32); GLUCOSE,RANDOM 148 mg/dL (74-106); MAGNESIUM 1.3 mg/dL (1.8-2.4)
[2022-10-17 19:24] LABS: PHOSPHOROUS 5.2 mg/dL (2.5-4.9); SGOT/AST 15 U/L (15-37); SGPT/ALT 19 U/L (13-61)
[2022-10-17 19:25] LABS: BILIRUBIN,TOTAL 0.2 mg/dL (0.2-1)
[2022-10-17 19:27] LABS: ALK PHOS 43 U/L (45-117)
[2022-10-17] MEDS ORDERED: CALCIUM GLUCONATE 10% - 1,000 MG/10 ML VIAL IVPB ONE (19:29)
[2022-10-17] MEDS ORDERED: INSULIN REGULAR HUMAN 100 UNITS/ML *VIAL IVPUSH ONE (19:29)
[2022-10-17] MEDS ORDERED: SODIUM ZIRCONIUM CYCLOSILICATE (LOKELMA) 5 GM PACKET PO ONE (19:30)
[2022-10-17] MEDS ORDERED: DEXTROSE 50%-WATER - 25 GM/50 ML VIAL IVPUSH ONE (19:30)
[2022-10-17 19:31] LABS: CALCIUM 6.6 mg/dL (8.5-10.1)
[2022-10-17] MEDS ORDERED: MAGNESIUM SULF 50% (8.12 MEQ/2 ML-1 GM VIAL) IVPB ONE ×2 (19:31→19:57)
[2022-10-17] MEDS ORDERED: FUROSEMIDE 40 MG/4 ML INJECTABLE VIAL IVPUSH ONE (19:42)
[2022-10-17] MEDS ORDERED: SODIUM ZIRCONIUM CYCLOSILICATE (LOKELMA) 5 GM PACKET ONE (19:46)
[2022-10-17] MEDS ORDERED: MAGNESIUM SULFATE IN WATER 2 GM/50 ML IVPB IVPB ONE ×3 (19:46→21:46)
[2022-10-17] MEDS ORDERED: DEXTROSE 50%-WATER 25 GM/50 ML DISP.SYRIN ONE ×2 (19:46→19:53)
[2022-10-17] MEDS ORDERED: CALCIUM GLUC IN NACL, ISO-OSM 1 GM/50 ML BAG IVPB ONE (19:47)
[2022-10-17] MEDS ORDERED: FUROSEMIDE 40 MG/4 ML INJECTABLE VIAL ONE (21:46)
[2022-10-17] MEDS ORDERED: DOCUSATE SODIUM 100 MG CAPSULE (FP) PO PRN (22:41)
[2022-10-17] MEDS ORDERED: ACETAMINOPHEN 325 MG TABLET (FP) PO PRN (22:41)
[2022-10-17 23:43] LABS: N-TERMINAL BNP 61696.1 pg/ml (5-125)
[2022-10-18] MEDS: INSULIN SLIDING SCALE (NOVOLOG) 1 VIAL SQ SCH ×3 (07:21→17:50)
[2022-10-18] MEDS ORDERED: SODIUM ZIRCONIUM CYCLOSILICATE (LOKELMA) 5 GM PACKET ONE (07:32)
[2022-10-18] MEDS ORDERED: TAMSULOSIN HCL 0.4 MG CAP ONE (07:32)
[2022-10-18] MEDS ORDERED: CLOPIDOGREL BISULFATE 75 MG TABLET (FP) ONE (07:32)
[2022-10-18] MEDS ORDERED: amLODIPine BESYLATE 10 MG TABLET (FP) ONE (07:32)
[2022-10-18] MEDS ORDERED: TAMSULOSIN HCL 0.4 MG CAP PO SCH (08:30)
[2022-10-18] MEDS ORDERED: CALCITRIOL 0.25 MCG CAPSULE (FP) PO SCH (10:00)
[2022-10-18] MEDS ORDERED: TORSEMIDE 100 MG TABLET PO SCH (10:00)
[2022-10-18] MEDS ORDERED: CLOPIDOGREL BISULFATE 75 MG TABLET (FP) PO SCH (10:00)
[2022-10-18] MEDS ORDERED: CLOTRIMAZOLE 1% 10 ML TOPICAL SOLUTION TP SCH (10:00)
[2022-10-18] MEDS ORDERED: SODIUM ZIRCONIUM CYCLOSILICATE (LOKELMA) 5 GM PACKET PO SCH (10:00)
[2022-10-18] MEDS ORDERED: AMMONIUM LACTATE 12% LOTION 225 GM BOTTLE TP SCH (10:00)
[2022-10-18] MEDS ORDERED: amLODIPine BESYLATE 10 MG TABLET (FP) PO SCH (10:00)
[2022-10-18] MEDS ORDERED: FLUTICASONE/UMECLIDIN/VILANTER(200-62.5-25 TRELEGY ELLIPTA) INAHLER IH SCH (10:00)
[2022-10-18 11:49] LABS: BASO % 1.1 % (0-2.0); EOS % 1.3 % (0-4.5); HEMATOCRIT 19.7 % (35.4-49); LYMPH % 13.2 % (8-40); MCH 30.5 pg (25.7-33.7); MCHC 33.2 g/dl (32.0-35.9); MEAN CELL VOLUME 91.8 fl (80-96); MEAN PLT VOLUME 7.3 fl (7.5-11.1); MONO % 8.7 % (3.8-10.2); NEUT % 75.7 % (42.8-82.8); PLATELET COUNT 294 10^3/uL (134-434); RBC 2.15 M/mm3 (4.00-5.60); RDW 14.8 % (11.9-15.9); WHITE BLOOD COUNT 12.1 K/mm3 (4.0-10.0)
[2022-10-18 11:58] LABS: HEMOGLOBIN 6.5 GM/dL (11.7-16.9)
[2022-10-18 12:16] LABS: CHLORIDE 114 mmol/L (98-107); SODIUM 138 mmol/L (136-145)
[2022-10-18 12:20] LABS: ANION GAP 4 MMOL/L (8-16); BLOOD UREA NITROGEN 47.2 mg/dL (7-18); CO2 20 mmol/L (21-32); GLUCOSE,RANDOM 194 mg/dL (74-106); MAGNESIUM 2.2 mg/dL (1.8-2.4)
[2022-10-18 12:23] LABS: CALCIUM 6.9 mg/dL (8.5-10.1); CREATININE 6.1 mg/dL (0.55-1.3); PHOSPHOROUS 5.6 mg/dL (2.5-4.9)
[2022-10-18] MEDS ORDERED: FUROSEMIDE 40 MG/4 ML INJECTABLE VIAL IVPUSH ONE (12:23)
[2022-10-18] MEDS ORDERED: ACETAMINOPHEN 325 MG TABLET (FP) ONE (15:31)
[2022-10-18 16:54] VITALS: TEMP 97.3
[2022-10-18] MEDS ORDERED: CALCIUM ACETATE 667 MG CAPSULE (FP) PO SCH (17:30)
[2022-10-18 21:26] VITALS: BP 112/97; PULSE 106; RESP 20
[2022-10-18] MEDS ORDERED: SODIUM BICARBONATE 650 MG TABLET PO SCH (22:00)
[2022-10-18] MEDS ORDERED: ATORVASTATIN CA 10 MG TABLET (FP) PO SCH (22:00)
[2022-10-18] MEDS ORDERED: OLANZapine 5 MG TABLET PO SCH (22:00)
== END 2022-10-18 21:45 | disposition left against medical advice (07) | DRG 683 ==
LOC: JER 17:02 → JERBED 20:46
PROVIDERS: ADMIT Internal Medicine; ATTEND Internal Medicine
DX: I12.9 Hypertensive chronic kidney disease with stage 1 through stage 4 chronic kidney disease, or unspecified chronic kidney disease (principal); E87.0 Hyperosmolality and hypernatremia; N17.9 Acute kidney failure, unspecified; E11.40 Type 2 diabetes mellitus with diabetic neuropathy, unspecified; J45.909 Unspecified asthma, uncomplicated; E78.5 Hyperlipidemia, unspecified; E87.5 Hyperkalemia; E83.42 Hypomagnesemia; E83.51 Hypocalcemia; D64.9 Anemia, unspecified; E83.39 Other disorders of phosphorus metabolism; F32.A Depression, unspecified; E11.22 Type 2 diabetes mellitus with diabetic chronic kidney disease; N18.9 Chronic kidney disease, unspecified
CPT/HCPCS: 0241U-QW; 36415; 71045-TC-FY; 73610-TC-LT-FY; 73630-TC-LT; 80048; 80053; 82962; 83735; 83880; 84100; 84484; 85025; 85610; 85730; 87324; 87449; 93005; 93010; 93970-TC; 99285-25

== ENCOUNTER 2022-10-25 13:40 | Emergency (ER) | payer OTHER ==
[2022-10-25] MEDS ORDERED: ACETAMINOPHEN 1000 MG/100 ML BAG IVPB ONE (14:40)
[2022-10-25 14:45] VITALS: RESP 18; BMI 27.1
[2022-10-25] MEDS ORDERED: VANCOMYCIN 1 GM in D5W (PRE-DOCKED) 1,000 MG/250 ML IVPB ONE (14:51)
[2022-10-25] MEDS ORDERED: CEFEPIME HCL/D5W 1 GM/50 ML BAG IVPB ONE (14:51)
[2022-10-25] MEDS ORDERED: ACETAMINOPHEN INJECTION 100 ML IVPB ONE (18:48)
[2022-10-25] MEDS ORDERED: VANCOMYCIN/WATER FOR INJ (PEG) 1,000 MG/200 ML BAG IVPB ONE (19:13)
[2022-10-25 19:15] LABS: VENOUS BASE EXCESS -9.1 mmol/L (-2-2); VENOUS O2 SATURATION 30.4 % (70-80); VENOUS PH 7.238 (7.310-7.410)
[2022-10-25 19:17] LABS: BASO % 0.1 % (0-2.0); EOS % 0.1 % (0-4.5); LYMPH % 5.4 % (8-40); MCH 28.3 pg (25.7-33.7); MCHC 31.8 g/dl (32.0-35.9); MEAN CELL VOLUME 88.7 fl (80-96); MEAN PLT VOLUME 7.1 fl (7.5-11.1); MONO % 5.4 % (3.8-10.2); PLATELET COUNT 344 10^3/uL (134-434); RBC 2.37 M/mm3 (4.00-5.60); RDW 15.3 % (11.9-15.9)
[2022-10-25 19:18] LABS: HEMOGLOBIN 6.7 GM/dL (11.7-16.9)
[2022-10-25 19:24] LABS: INR 1.36 (0.83-1.09); PROTHROMBIN TIME (PATIENT) 15.7 SEC (9.7-13.0)
[2022-10-25 19:27] LABS: ACTIVATED PTT 31.7 SECONDS (25.2-36.5)
[2022-10-25 19:39] LABS: CALCIUM 7.6 mg/dL (8.5-10.1)
[2022-10-25 19:40] LABS: BLOOD UREA NITROGEN 58.1 mg/dL (7-18)
[2022-10-25 19:41] LABS: CREATININE 6.5 mg/dL (0.55-1.3)
[2022-10-25 19:44] LABS: BILIRUBIN,TOTAL 0.2 mg/dL (0.2-1); TOT PROT 6.4 g/dl (6.4-8.2)
[2022-10-25 19:59] LABS: N-TERMINAL BNP 55250.5 pg/ml (5-125)
[2022-10-25 20:02] LABS: ANISOCYTOSIS 2+; MACROCYTOSIS 0; OVALOCYTE 1+; TARGET CELLS 1+
[2022-10-25] MEDS ORDERED: CLINDAMYCIN 600MG PREMIX IVPB 600 MG/50 ML BAG IVPB ONE ×2 (20:16→20:21)
[2022-10-26 03:31] VITALS: BP 129/68; PULSE 90; TEMP 98
== END 2022-10-26 04:05 | disposition short-term general hospital (02) ==
LOC: JER 13:40
PROC: 3E0333Z Introduction of Anti-inflammatory into Peripheral Vein, Percutaneous Approach (ICD-10-PCS; principal; 2022-10-25)
PROC: 3E03329 Introduction of Other Anti-infective into Peripheral Vein, Percutaneous Approach (ICD-10-PCS; 2022-10-25)
PROC: 3E03329 Introduction of Other Anti-infective into Peripheral Vein, Percutaneous Approach (ICD-10-PCS; 2022-10-25)
DX: S91.302A Unspecified open wound, left foot, initial encounter (principal); M86.9 Osteomyelitis, unspecified; M72.6 Necrotizing fasciitis; Y99.9 Unspecified external cause status
CPT/HCPCS: 0241U-QW; 36415; 36430; 73610-TC-LT-FY; 73610-TC-RT-FY; 73630-TC-LT; 73630-TC-RT-FY; 73700-TC-RT; 80053; 82803; 83605; 83880; 85025; 85610; 85730; 86850; 86900; 86901; 86922; 87040; 93970-TC; 96374; 96375; 99285-25; P9058